=== PATIENT | male | born 1955 | race Caucasian/White ===

== ENCOUNTER 2023-01-12 09:16 | Outpatient (REF) | payer BC, SELFPAY ==
--- NOTE | ~2023-01-12 | XR_ITS ---
EXAMINATION: XR FOOT, LEFT CLINICAL INFORMATION: Plantar fascial fibromatosis COMPARISON: None available. TECHNIQUE: AP, lateral, and oblique views of the left foot. FINDINGS: Mild degenerative changes present at the DIP joints, most marked in the third digit. No fractures or dislocations are seen. No calcaneal spurs are seen. No calcifications are noted in the plantar fascia. XR/XR foot LT min 3V IMPRESSION: Mild degenerative changes as described above. No acute finding.
== END 2023-01-12 09:17 | disposition home or self-care (01) ==
LOC: HO.HMGCX 09:16
PROVIDERS: PCP Internal Medicine Geriatric Medicine; Visit Provider Internal Medicine
DX: M72.2 Plantar fascial fibromatosis (principal)
CPT/HCPCS: 73630

== ENCOUNTER 2023-04-25 11:05 | Outpatient (REF) | payer BC, SELFPAY ==
[2023-04-25 13:22] LABS: MANUAL DIFF FLAG NO
[2023-04-25 13:50] LABS: Basophils Absolute Auto 0.1 X10*3/uL (0.0-0.2); Basophils Percent Auto 0.9 % (0-2); Eosinophils Absolute Auto 0.4 X10*3/uL (0.0-0.4); Eosinophils Percent Auto 5.5 % (0-4); Hematocrit 44.9 % (42.0-52.0); Hemoglobin 15.3 g/dl (14.0-18.0); Imm Gran Abs Auto 0.06 X10*3/uL (0.00-0.03); Imm Gran Pct Auto 0.9 % (0.0-0.4); Lymphocytes Absolute Auto 2.3 X10*3/uL (1.2-4.9); Lymphocytes Percent Auto 35.8 % (20-40); Mean Corpuscular HGB Conc 34.1 g/dl (31.0-36.0); Mean Corpuscular Hemoglobin 31.7 pg (27.0-33.0); Mean Platelet Volume 11.1 fL (9.4-12.4); Monocytes Absolute Auto 0.6 X10*3/uL (0.1-1.2); Monocytes Percent Auto 8.8 % (2-11); Neutrophils Absolute Auto 3.1 x10*3/uL (2.0-8.3); Neutrophils Percent Auto 48.1 % (45-73); Platelet Count 210 X10*3/uL (160-400); Red Blood Count 4.83 X10*6/uL (4.60-5.80); Red Cell Distribution Width 12.1 % (11.0-16.0); White Blood Count 6.4 X10*3/uL (4.8-10.8)
[2023-04-25 14:10] LABS: Appearance Urine Turbid; Color Urine Yellow; Glucose Urine UA >=1000 mg/dL (Negative); Leukocyte Esterase Urine Negative (Negative); Nitrite Urine Negative (Negative); PH 5.5 (5.0-9.0); Specific Gravity - Urine >= 1.030 (1.005-1.025); UMIC TRIGGER UACC YES; Urine Blood Negative (Negative); Urine Ketones Negative (Negative); Urine Protein Trace mg/dL (Neg-Trace)
[2023-04-25 14:19] LABS: Bacteria Urine None Seen (None Seen); Hyaline Casts Urine 0-2 /LPF (0-2); RBC Urine 0-2 /HPF (0-2); Squamous Epithelial Cell Urine 0-2 /HPF (0-2); WBC Urine 0-5 /HPF (0-5)
[2023-04-25 14:24] LABS: Alanine Aminotransferase 54 U/L (0-40); Albumin Level 4.5 g/dL (3.5-5.0); Alkaline Phosphatase 78 U/L (39-117); Anion Gap 13 (12-20); Aspartate Amino Transferase 40 U/L (5-37); Bilirubin Total 0.8 mg/dL (0.0-1.0); Blood Urea Nitrogen 10 mg/dL (9-16); Calcium 10.1 mg/dL (8.4-10.2); Carbon Dioxide 29 mmol/L (22-29); Chloride 100 mmol/L (96-108); Cholesterol 232 mg/dL (<200); Estimated Glomerular Filt Rate > 60; Glucose Fasting 291 mg/dL (60-99); HDL Cholesterol 52 mg/dL (>40); LDL Cholesterol Calculated 107 mg/dL (<100); Sodium 137 mmol/L (135-145); TSH reflex Free T4 3.24 uIU/mL (0.32-4.0); Total Protein 7.9 g/dL (6.5-8.0); Triglycerides 368 mg/dL (<150)
[2023-04-30 19:32] LABS: PSA, Ultra Sensitive 1.04 ng/mL
== END 2023-04-25 11:06 | disposition home or self-care (01) ==
LOC: HO.HMGCLDS 11:05
PROVIDERS: Visit Provider Nurse Practitioner Family
DX: Z00.00 Encounter for general adult medical examination without abnormal findings (principal); E11.9 Type 2 diabetes mellitus without complications; F41.9 Anxiety disorder, unspecified; I10 Essential (primary) hypertension
CPT/HCPCS: 36415; 80053; 80061; 81001; 84153; 84443; 85025

== ENCOUNTER 2023-04-26 08:49 | Outpatient (AMB) | payer BC, SELFPAY ==
[2023-04-26 08:55] VITALS: BP 150/90; PULSE 74; RESP 16; TEMP 36.9; O2SAT 97
--- NOTE | 2023-04-26 08:55 | A.OFFPC_ITS ---
Vital Signs 04/26/23 08:55 Height 5 ft 11.5 in Weight 218 lb 8 oz BMI 30.0 BP 150/90 H Blood Pressure Location Lt brachial Position Sitting Respiration 16 Pulse 74 Pulse Source Pulse Oximeter Temp 98.5 F Temp Source Oral Pulse Oximetry (%) 97 Oxygen Delivery Method Room Air Oxygen Flow Rate 98.5 Intake Visit Reasons: 3 mos HTN/DM2 Intake Note: Patient is here today for follow up onhypertension and diabetes. Allergies No Known Allergies Allergy (Verified 04/26/23 09:12) Medication List - Last Reconciled 04/26/23 by Gail Pan CNP citalopram 20 mg PO DAILY clonazepam 0.5 mg PO BID Tobacco use date assessed: 04/26/23 Fall risk assessment: No Falls in past year Last assessed Fall Risk: 04/26/23 Dental Screening Dental Screen Date: 04/26/23 Did you have a dental visit in the last 12 months?: No Did you have a dental problem in the last 6 months where you did not have access to dental care?: No Was dental information given to patient?: Patient has dentist HPI HPI Comments History of Present Illness Details 67-year-old male presents for hypertension and diabetes follow-up. He established care 3 months ago. His blood pressure was elevated, 144/66, his A1c was also elevated, 9.3%. He refused medication treatment and stated he will work on losing weight and follow-up in 3 months. No acute symptoms today. He notes he is followed by Ophthalmology. His last eye exam was over a year ag o. He notes that he recently returned from a week of vacation and had 3-4 beers daily. [facility] Medical History Anxiety Family History Mother Breast cancer Social History Housing: House Patient Tobacco Use Status: Former Tobacco user Tobacco use type: Cigarette Cigarette Packs Per Day: 0.75 e-Cigarette/Vaping Use: Never Used Second Hand Smoke Exposure: No service: No Current occupational status: employed Current occupation: Contractor Current occupational exposures/hazards: No Cognitive needs: No Hearing needs: No Vision needs: No Questionnaire Thrive Questionnaire Date Thrive assessed: 05/23/23 JAZZ-7 AMB Questionnaire JAZZ-7 Date JAZZ - 7 assessed: 01/25/23 Source: Developed by Drs. Dayday Palacios, Katie Zavaleta, Max Sanches and colleagues, with an educational chinedu from [employer]. Review of Systems Const Details: Const Denies chills, Denies fatigue, Denies fever(s), Denies headache(s) and Denies weakness ENT Denies dizziness and Denies headache(s) Card Denies chest pain, Denies lightheadedness, Denies dyspnea and Denies other (Palpitations) Resp Denies cough, Denies dyspnea, Denies wheezing and Denies other ( shortness of breath) GI Denies abdominal pain, Denies melena, Denies hematochezia, Denies change in bowel habits, Denies dyspepsia and Denies nausea Denies hematuria and Denies dysuria Musc Denies abnormal gait, Denies myalgias, Denies arthralgias, Denies numbness and Denies tingling Skin/Breast Denies rash, Denies unusual bruising and Denies wounds Neuro Denies abnormal gait, Denies dizziness, Denies headache(s), Denies memory loss, Denies numbness, Denies Sensory deficit (Neuro), Denies tingling and Denies weakness Psych Denies anxiety, Denies depression, Denies memory loss Endo Denies cold intolerance, Denies fatigue, Denies heat intolerance, Denies polydipsia and Denies polyuria Aller/Immun Denies wheezing Physical exam (Primary Care) Vital Signs: Last Vital Signs Temp 98.5 F 04/26/23 08:55 Pulse 74 04/26/23 08:55 Resp 16 04/26/23 08:55 BP 150/90 H 04/26/23 08:55 Pulse Ox 97 04/26/23 08:55 Oxygen Delivery Method Room Air 04/26/23 08:55 Oxygen Flow Rate 98.5 04/26/23 08:55 BMI result Body Mass Index 30.0 Tobacco/Smoking Status: Tobacco use Status Tobacco use date assessed 04/26/23 04/26/23 09:08 Patient Tobacco Use Status Former Tobacco user 04/26/23 09:08 Tobacco use type Cigarette 04/26/23 09:08 e-Cigarette/Vaping Use Never Used 04/26/23 09:08 Thrive Assessment: Date of Thrive Assessment Date Thrive assessed 01/25/23 04/26/23 09:08 Const Other: General: no acute distress and well developed Nutritional Appearance: well nourished Orientation/consciousness: patient oriented x3 [facility] Head: Yes normocephalic and Yes atraumatic Eyes General: appearance normal, both eyes and all related structures Pupils: Equal, round and reactive pupils present EOM: EOMs intact bilaterally Resp Effort & Inspection: normal respiratory effort Auscultation: clear to auscultation bilaterally Cardio Rate: regular rate Rhythm: regular rhythm Heart sounds: S1 normal heart sound present, S2 normal heart sound present, no gallops, no murmurs and no rubs GI Palpation (GI): No Abdominal aortic bruit present, Soft to palpation, nontender, No hepatosplenomegaly present and No Rebound tenderness present Auscultation: normal bowel sounds General: Yes no CVA tenderness Back/Spine/Pelvis Back: no CVA tenderness Cervical Spine: cervical ROM normal and No Cervical spine tenderness Thoracic/Lumbar Spine: thoraco-lumbar ROM normal, No pain with thoraco-lumbar ROM, No thoracic spinal tenderness and No lumbar spinal tenderness Extrem General: Yes normal to inspection, No edema and No calf tenderness Skin General: warm and dry. Normal skin color. Normal skin turgor Lesions: no lesions Rashes: no rashes Trauma: no lacerations or abrasions Wounds: no wounds Nails: normal Neuro General: patient oriented x3, gait normal and no focal neuro deficit Cranial nerves: Yes Equal, round and reactive pupils present Cognition (Neuro): normal cognition Gait exam (Neuro): Normal gait present Sensory Exam: No Sensory deficit (Neuro) Psych Appearance: grossly normal Affect: normal affect Attitude: cooperative Thought process: Normal thought process present Results AMB Hemoglobin A1c AMB Hemoglobin A1c 9.9 % Last Edit by Amanda Valdez CMA on 04/26/23 09:30 Assessment and Plan Assessment & Plan (1) Hypertension: Code(s): I10 - Essential (primary) hypertension Plan: Blood pressure is 150/90, above goal of less than 130/80 Declines medication treatment Low-sodium diet and routine exercise encouraged Follow-up in 1 month for complete physical exam Return sooner with symptoms or concerns Verbalized understanding and agreed with treatment plan. (2) Type 2 diabetes mellitus: Code(s): E11.9 - Type 2 diabetes mellitus without complications Plan: His A1c today is 9.9%, above goal of less than 7.0% Previous A1c was 9.3% Declined medication treatment today. He notes he will continue to work on losing weight ADA diet and routine exercise encouraged Advised to follow-up with Ophthalmology for an eye exam Follow-up in 1 month for complete physical Return sooner with symptoms or concerns Verbalized understanding and agreed with treatment plan. (3) Hyperlipidemia: Code(s): E78.5 - Hyperlipidemia, unspecified Plan: Recent lab results reviewed with patient Triglyceride, total cholesterol, and LDL were elevated His 10 year risk of ASCVD is 31.5% Declines medication treatment. He notes he will continue to work on losing weight Advised to limit foods high in saturated fat and avoid foods high trans fat Routine exercise encouraged Follow-up with symptoms or concerns Verbalized understanding and agreed with treatment plan. (4) Transaminitis: Code(s): R74.01 - Elevation of levels of liver transaminase levels Plan: Slight elevation in recent AST and ALT He notes that he recently returned from a week of vacation and had 3-4 beers daily Likely due to alcohol intake Lipid panel ordered. Advised to get fasting blood work done before next visit Follow-up in 1 month for complete physical exam Verbalized understanding and agreed with treatment plan. Orders: Orders AMB Hemoglobin A1c Today Z13.9 - Encounter for screening, unspecified Liver Panel Today R74.01 - Elevation of levels of liver transaminase levels Coding Level of Care Code Est Pt Level 3 (72707) Diagnoses Hypertension I10 Type 2 diabetes mellitus E11.9 Hyperlipidemia E78.5 Transaminitis R74.01
== END 2023-04-26 09:36 | disposition home or self-care (01) ==
PROVIDERS: Visit Provider Nurse Practitioner Family
DX: I10 Essential (primary) hypertension (principal); E11.9 Type 2 diabetes mellitus without complications; E78.5 Hyperlipidemia, unspecified; R74.01 Elevation of levels of liver transaminase levels
CPT/HCPCS: 83036; 99213

== ENCOUNTER 2024-05-22 08:02 | Outpatient (AMB) | payer BC, SELFPAY ==
[2024-05-22 08:03] VITALS: BP 146/92; PULSE 87; TEMP 36.7; O2SAT 96; BMI 28.7
--- NOTE | 2024-05-22 08:03 | AM.OFFWIN_ITS ---
Intake Vital Signs 05/22/24 08:03 Height 5 ft 11.5 in Weight 209 lb BMI 28.7 BP 146/92 H Blood Pressure Location Lt brachial Position Sitting Pulse 87 Pulse Source Pulse Oximeter Temp 98.1 F Temp Source Oral Pulse Oximetry (%) 96 Oxygen Delivery Method Room Air Intake Visit Reasons: EP Cold symtoms/sinus, raspy voice Intake Note: pt c/o cold symptoms, productive cough, itchy eyes, sinus pressure and raspy voice. Started Tuesday. Patient Tobacco Use Status: Former Tobacco user Allergies oxycodone Allergy (Intermediate, Verified 05/22/24 08:12) thrush Do you need a note to return to daycare/school/sports/work: No HPI HPI Comments History of Present Illness Details Patient is a 68-year-old male complaining of 4 days of a dry cough and eye watering. He states that the eye watering started in the left eye and now it is happening in the right eye. He states when he woke up this morning his eye was crusted shut, he states that it is leaking clear fluid, not a yellow fluid. He denies any changes in his vision, sinus pain, ear pain, headaches, shortness of breath or fevers. He states he was exposed to somebody who was sick last week but he is not sure if they had COVID or not. [facility] Medical History Anxiety Family History Mother Breast cancer Social History Housing: House Patient Tobacco Use Status: Former Tobacco user Tobacco use type: Cigarette Cigarette Packs Per Day: 0.75 e-Cigarette/Vaping Use: Never Used Second Hand Smoke Exposure: No service: No Current occupational status: employed Current occupation: Contractor Current occupational exposures/hazards: No Cognitive needs: No Hearing needs: No Vision needs: No Review of Systems Const All systems reviewed & are unremarkable except as noted in HPI and below Physical Exam Vital Signs: Last Vital Signs Temp 98.1 F 05/22/24 08:03 Pulse 87 05/22/24 08:03 BP 146/92 H 05/22/24 08:03 Pulse Ox 96 05/22/24 08:03 Oxygen Delivery Method Room Air 05/22/24 08:03 BMI result Body Mass Index 28.7 Const General: cooperative, healthy appearing, comfortable and no acute distress Orientation/consciousness: patient oriented x3 Limitations: no limitations HEENT Head: Yes normal to inspection Ears: hearing grossly normal bilaterally, external ears normal and TM's normal bilaterally General nose exam: Normal external nose present, Normal nares present and No nasal discharge present Face and sinus: Yes normal facial exam and Yes sinuses nontender Mouth: Normal oral and palatal mucosa present and moist mucous membranes Throat: Yes tonsils normal, Yes uvula midline and Yes posterior oropharynx abnormal (Erythema) Eyes General: appearance normal, both eyes and all related structures Neck Neck: Yes normal visual inspection Resp Effort & Inspection: normal respiratory effort, able to speak in complete sentences, Actively coughing, no respiratory distress, not tachypneic, no tripod positioning and no use of accessory muscles Skin General skin exam: no rashes or lesions noted Neuro General: patient oriented x3 Extrem General: Yes normal to inspection and Yes no clubbing, cyanosis or edema Assessment & Plan Assessment & Plan (1) URI (upper respiratory infection): Code(s): J06.9 - Acute upper respiratory infection, unspecified Qualifiers: URI type: unspecified URI Qualified Code(s): J06.9 - Acute upper respiratory infection, unspecified Plan: Vital signs are stable, patient is well-appearing, we will send [facility] [place] for his cough. We did test for flu COVID and RSV today. Recommended [id number] medications to treat his symptoms and hot tea with honey for his throat. Plan See above Orders: Orders SARS-CoV2/FLU/RSV Today J06.9 - Acute upper respiratory infection, unspecified Medications: New benzonatate 200 mg PO TID PRN 10 caps 0RF cough Coding Level of Care Code Est Pt Level 3 (37062) Diagnoses Upper respiratory tract infection, unspecified type J06.9 URI type: unspecified URI
== END 2024-05-22 08:37 | disposition home or self-care (01) ==
PROVIDERS: PCP Nurse Practitioner Family; Visit Provider Physician Assistant
DX: J06.9 Acute upper respiratory infection, unspecified (principal)

== ENCOUNTER 2024-05-22 08:02 | Outpatient (REF) | payer BC, SELFPAY ==
[2024-05-23 11:20] LABS: Influenza A PCR NEGATIVE (Negative); Influenza B PCR NEGATIVE (Negative); Resp Syncy Virus RNA Qual PCR NEGATIVE (Negative); SARS COV2 PCR INHOUSE NEGATIVE (Negative)
== END 2024-05-22 08:03 | disposition home or self-care (01) ==
LOC: HO.LNP 08:02
PROVIDERS: PCP Nurse Practitioner Family; Visit Provider Physician Assistant
DX: J06.9 Acute upper respiratory infection, unspecified (principal)
CPT/HCPCS: 0241U

== ENCOUNTER 2024-05-23 08:05 | Outpatient (REF) | payer BC, SELFPAY | END 2024-05-23 08:06 | disposition home or self-care (01) | LOC: HO.LAB 08:05 | PROVIDERS: Visit Provider Physician Assistant | DX: Z13.89 Encounter for screening for other disorder (principal) ==